=== PATIENT | male | born 1950 | race Caucasian/White ===

== ENCOUNTER → 2016-05-29 | Day surgery (SDC) | payer BC ==
[2016-05-19 13:55] VITALS: Ht 180.3 cm; Wt 81.8 kg
[~2016-05-29] VITALS: Ht 180.3 cm; Wt 81.8 kg
[~2016-05-29] MED LIST: BUPIVACAINE 0.25% 2.5MG/ML PF 10 ML VIAL INFIL ONE; IOPAMIDOL INJ 61% 15 ML VIAL ONE; LIDOCAINE HCL 1% MPF 5 ML VIAL ONE; METHYLPREDNISOLONE ACETATE 80 MG/ML VIAL ONE
--- NOTE | 2016-05-29 14:22 | History & Physical Bridge - [place] ---
H&P Re-Evaluation Bridge Note: I have examined the patient, reviewed the History & Physical and in the interval since the performance of the History & Physical I have noted the following changes of clinical significance: No changes noted
[2016-05-29 14:47] VITALS: BP 126/84; PULSE 60; TEMP 37.2; O2SAT 96
--- NOTE | 2016-05-29 14:48 | Discharge Instructions ---
Discharge Instructions Visit Reason for Visit: Lumbar Spondylosis With Myelopathy Or Radiculopath Discharge Discharge Diagnosis / Problem: low back pain Discharge Goals Goal(s): Decrease discomfort, Improve function Activity Recommendations Activity Limitations: resume your previous activity Anesthesia . Post Anesthesia Instructions: If you have had General Anesthesia or IV Sedation: * Do not drive today. * Resume driving when surgeon permits. * Do not make important decisions or sign legal documents today. * Call surgeon for: 1. Temperature elevations greater than 101 degrees F. 2. Uncontrollable pain. 3. Excessive bleeding. 4. Persistent nausea and vomiting. 5. Medication intolerance (nausea, vomiting or rash). * For nausea and vomiting use only clear liquids such as: tea, soda, bouillon until nausea subsides, then gradually increase diet as tolerated. * If you have any concerns or questions, call your surgeon's office. If physician is unavailable and it is an emergency, call 911 or go to the nearest emergency room. . Diet Recommendations Recommended Home Diet: resume previous diet Pending Studies Studies pending at discharge: no Medical Emergencies . Who to Call and When: Medical Emergencies: If at any time you feel your situation is an emergency, please call 911 immediately. . Non-Emergent Contact Non-Emergency issues call your: Specialist . . "Provider Documentation" section prepared by Chirag Bourne.
--- NOTE | 2016-05-29 16:30 | OPERATIVE REPORT ---
DATE OF OPERATION: 05/29/2016 PREOPERATIVE DIAGNOSES: Chronic low back pain, bilateral L5-S1 facet arthropathy. POSTOPERATIVE DIAGNOSES: Same. PROCEDURE: Bilateral L5-S1 facet joint injections under fluoroscopic guidance. INDICATIONS: The patient is a 66-year-old white male who is having difficulty with axial back pain that is worse with standing, twisting, extending. He denies any significant radiating component of the pain into the legs and he presents today with known facet arthropathy and symptoms that are consistent with this for injections to the facet joints to alleviate or diminish the axial back pain that he is having. PHYSICAL EXAMINATION: Pleasant male seated comfortably. He is point tender to palpation of his L5-S1 facet joints bilaterally, worse with extension and rotation. He has no focal weakness of the lower extremity and sensation is intact. Negative seated straight leg raises. CONSENT: Verbal and written consent was obtained from the patient. Risks and benefits were reviewed. Risks include but are not limited to abscess and allergic reaction. The patient wishes to proceed. DESCRIPTION OF PROCEDURE: The patient was taken back to the special procedures room of the [facility] where he was maintained in a prone position. Backside was cleansed with Betadine x3 and a dry sterile dressing was applied. Fluoroscope was used to identify the L5-S1 facet on the right which was difficult to see because of the underlying mesh. Overlying skin was anesthetized with 3 mL of lidocaine 1% with a 25 gauge 1.5-inch needle and a 25 gauge 3-1/2-inch needle was then placed into the L5-S1 facet joint. Isovue 300 contrast less than a 0.25 mL was injected and which demonstrated intra-articular placement of the needle. He then underwent injection after negative aspiration of 40 mg of Depo-Medrol 0.5 mL and also 0.5 mL of bupivacaine 0.25%. Injection was well tolerated. The right facet joint L5-S1 was then visualized with a 25 degree oblique view. Overlying skin was anesthetized with 3 mL of lidocaine 1% with a 25 gauge 1.5-inch needle. A 25 gauge 3.5 inch spinal needle was then placed into the joint which was well visualized. Isovue 300 contrast 0.25 mL or less was injected and which showed intra-articular placement. He then underwent injection after negative aspiration of 40 mg of Depo-Medrol and 1.5 mL of bupivacaine 0.25%. Injection was well tolerated. DISPOSITION: The patient was then taken out into the discharge recovery area and will be taken home once discharge criteria have been met. Follow up in the [facility] office in 2-4 weeks. I attest to the content of the Intraoperative Record and any orders documented therein. Any exceptio ns are noted below.
== END | disposition home or self-care (01) ==
LOC: X.SURG 13:51
PROVIDERS: ATTEND Physical Medicine & Rehabilitation
DX: M47.817 Spondylosis without myelopathy or radiculopathy, lumbosacral region (principal); G89.29 Other chronic pain

== ENCOUNTER → 2016-06-27 | Outpatient (CLI) | payer BC ==
--- NOTE | 2016-06-27 15:26 | DIAGNOSTIC IMAGING REPORT ---
RIGHT SHOULDER MIN 2 VIEWS CLINICAL HISTORY: Right shoulder pain COMPARISON: None. DISCUSSION: No fractures or dislocations are visualized. There is a sliver-like periarticular/peritendinous calcification. IMPRESSION: 1. No fractures or dislocations 2. Sliver-like periarticular/peritendinous calcification near the greater tuberosity. This may indicate calcific tendinitis. Electronically signed by: Ford Langston M.D. 06/27/2016 3:25 PM Dictated Date/Time: 06/27/2016 3:24 PM
== END | disposition home or self-care (01) ==
LOC: C.RDSM 14:52
PROVIDERS: ATTEND Physical Medicine & Rehabilitation Sports Medicine
DX: R52 Pain, unspecified (principal); M89.9 Disorder of bone, unspecified

== ENCOUNTER → 2016-07-11 | Outpatient (CLI) | payer BC | END | disposition home or self-care (01) | LOC: C.LAB 10:54 | PROVIDERS: ATTEND Urology | DX: R97.20 Elevated prostate specific antigen [PSA] (principal) ==

== ENCOUNTER → 2016-08-12 | Outpatient (CLI) | payer BC | END | disposition home or self-care (01) | LOC: C.LAB 10:49 | PROVIDERS: ATTEND Urology | DX: R97.20 Elevated prostate specific antigen [PSA] (principal) ==

== ENCOUNTER → 2016-11-04 | Outpatient (CLI) | payer BC ==
[2016-11-04 10:35] LABS: % FREE PSA 21.7 %; FREE PSA 1.25 ng/ml; PROSTATE SPECIFIC ANTIGEN 5.77 ng/ml (0.000-4.000)
== END | disposition home or self-care (01) ==
LOC: C.LAB 08:25
PROVIDERS: ATTEND Urology
DX: R97.20 Elevated prostate specific antigen [PSA] (principal)

== ENCOUNTER → 2017-04-06 | Outpatient (CLI) | payer BC | END | disposition home or self-care (01) | LOC: C.RDSM 11:29 | PROVIDERS: ATTEND Physical Medicine & Rehabilitation Sports Medicine | DX: M17.0 Bilateral primary osteoarthritis of knee (principal) ==

== ENCOUNTER → 2017-05-13 | Outpatient (CLI) | payer BC | END | disposition home or self-care (01) | LOC: C.LABBC 10:19 | PROVIDERS: ATTEND Urology | DX: R97.20 Elevated prostate specific antigen [PSA] (principal); N40.0 Benign prostatic hyperplasia without lower urinary tract symptoms ==

== ENCOUNTER → 2017-07-03 | Outpatient (CLI) | payer BC ==
[2017-07-03 14:23] LABS: BLOOD UREA NITROGEN 24 mg/dl (7-18); CREATININE 0.88 mg/dl (0.60-1.40)
== END | disposition home or self-care (01) ==
LOC: C.LABBC 10:49
PROVIDERS: ATTEND Urology
DX: R97.20 Elevated prostate specific antigen [PSA] (principal)

== ENCOUNTER → 2017-07-09 | Outpatient (CLI) | payer BC ==
[~2017-07-09] MED LIST changes: -BUPIVACAINE 0.25% 2.5MG/ML PF 10 ML VIAL INFIL ONE; +GADAVIST IV PRN; -IOPAMIDOL INJ 61% 15 ML VIAL ONE; -LIDOCAINE HCL 1% MPF 5 ML VIAL ONE; -METHYLPREDNISOLONE ACETATE 80 MG/ML VIAL ONE
--- NOTE | 2017-07-10 08:21 | DIAGNOSTIC IMAGING REPORT ---
PROSTATE MRI COMBO CLINICAL HISTORY: Prostatomegaly. Elevated serum PSA. COMPARISON STUDY: Pelvic CT dated 07/22/2013. TECHNIQUE: Multisequence, multiplanar MR imaging of the prostate was performed before and after the administration of intravenous contrast. Additional postprocessing was performed on a separate [employer] workstation by the radiologist for 3-D volumetric segmentation of the prostate and contouring of region(s) of interest (MARY) for targeting. IV contrast: 8 cc of Gadavist. The examination is degraded by susceptibility artifact from orthopedic hardware in the right hip. FINDINGS: Prostate: The prostate measures 5.8 cm in transverse outer. There is median lobe hypertrophy. (Dyna[employer] prostate boundary segmentation volume 114 mL). Severe changes of benign prostatic hyperplasia. Precontrast T1 weighted imaging demonstrates no evidence of intrinsic T1 hyperintensity to suggest hemorrhage. Seminal vesicles normal. Bladder: The bladder wall is thickened and trabeculated indicating chronic outlet obstruction. Bowel: There is moderate diverticulosis of the partially visualized sigmoid colon. Visualized bowel loops are normal in caliber. Peritoneum: No free fluid in the pelvis. Lymph nodes: No lymphadenopathy in the visualized portion of the pelvis. Vasculature: Iliac vessels patent. Abdominal wall: Normal. Osseous structures: Normal bone marrow signal intensity. IMPRESSION: 1. No concerning lesion is identified by MRI. 2. Benign prostatic hyperplasia. 3. Sigmoid diverticulosis without evidence of acute diverticulitis. Electronically signed by: Haim Delaney M.D. 07/10/2017 8:20 AM Dictated Date/Time: 07/09/2017 3:17 PM
== END | disposition home or self-care (01) ==
LOC: C.MRIBC 13:28
PROVIDERS: ATTEND Urology
DX: R97.20 Elevated prostate specific antigen [PSA] (principal); N40.0 Benign prostatic hyperplasia without lower urinary tract symptoms; K57.30 Diverticulosis of large intestine without perforation or abscess without bleeding

== ENCOUNTER 2020-03-14 05:10 | Observation (INO) ==
--- NOTE | 2020-01-13 08:58 | PAT Medication Instructions ---
Medication Instructions Date of Service January 13, 2020 Home Medications Medication Instructions Recorded mirabegron 50 mg tablet,extended 50 mg PO DAILY #90 tab 09/26/19 release 24 hr mirabegron 50 mg tablet,extended release 24 hr 50 mg PO DAILY aspirin [Aspir-81] 81 mg PO QAM DO NOT take the morning of surgery mirabegron 50 mg tablet,extended release 24 hr 50 mg PO DAILY Take morning of surgery With a small sip of water, OTHERWISE NOTHING TO EAT OR DRINK AFTER MIDNIGHT: aspirin [Aspir-81] 81 mg PO QAM Other Notes If you have any questions please call us at [phone] or [phone] or [phone] or [phone]
--- NOTE | 2020-02-17 10:21 | PAT Medication Instructions ---
Medication Instructions Date of Service February 17, 2020 Home Medications aspirin [Aspir-81] 81 mg PO QAM Take morning of surgery With a small sip of water, OTHERWISE NOTHING TO EAT OR DRINK AFTER MIDNIGHT: aspirin [Aspir-81] 81 mg PO QAM Other Notes If you have any questions please call us at [phone] or [phone] or [phone] or [phone]
--- NOTE | 2020-02-20 12:27 | Anesthesiology Consultation ---
Date of Service February 20, 2020 Assessment & Plan (1) Encounter for pre-operative examination: - Per assessment on 02/19: Travel screen negative. No known COVID-19 positive contacts or current COVID-19 related symptoms. Surgeon arranging preop COVID testing. Awaiting results. - S/P TURP: 01/26/20: LMA#5 at [facility] - ASA instructions: per surgeon/prescriber Chart Review Chart Review: Acceptable Risk for Surgery (pending surgeon-ordered PCP clearance) and Patient seen in Pre Admission Testing Teaching & Discussion Pre-Anesthesia Teaching/Discussion Notes: Instructed NPO after midnight before surgery,except medications with 15 cc of water. Medication instructions provided according to the PAT guidelines. History Surgery Operation Date: 03/14/20 07:00 Proposed Procedures p Right Total Knee Arthroplasty - Gerardo Mandujano MD Height/Weight Height: 5 ft 11 in Weight: 84.9 kg Allergies Allergy/AdvReac Type Severity Reaction Status Date / Time No Known Allergies Allergy Verified 02/14/20 11:18 Medications Home Medications Medication Instructions Recorded Confirmed Last Taken aspirin [Aspir-81] 81 mg PO QAM 01/13/20 02/20/20 1 Week Ago ~01/19/20 Past Medical History Medical History BPH (benign prostatic hyperplasia) Iliac artery aneurysm (08/12/13) hx s/p endovascular repair (2013), follows with Dr Alfonso Osteoarthritis Exercise / Class Metabolic Activity II 4-5 Yardwork/Stairs/Walk up hill Past Family History Family History Other No significant family history Past Surgical History Surgical History History of arthroscopy R/L knee History of cataract surgery R/L History of colonoscopy History of cystoscopy History of open reduction and internal fixation (ORIF) procedure RIGHT HIP History of tooth extraction History of total knee replacement LEFT Hx of hand surgery R/L TENDON REPAIR Hx of transurethral resection of prostate TURP: 03/09/18: LMA#4 at [facility] Hx of vascular surgery RIGHT ILIAC ANEURYSM REPAIR (~2013) Hx of vasectomy S/P TURP 01/26/20 [facility] Past Anesthesia History No Hx of Anesthesia Complications and No Family Hx of Anesthesia Complications History of PONV No Hx of PONV and No Hx of Motion Sickness Social History Smoking Status: Former smoker tobacco type: cigarettes Do You Dip or Chew Tobacco: No Smoking End Date: Quit ~1989 Hx Alcohol Use: Yes Alcohol type: beer alcohol intake frequency: a few times a week Hx Substance Use: No substance use type: does not use Review of Systems Patient denies chest pain, shortness of breath, dyspnea on exertion, fever, chills, cough, wheezing, palpitations. Physical Exam Vital Signs VITALS BP 130/81 P 61 TEMP 98.0 SP02 97%RA RESP 16 PHYSICAL Full neck and c-spine range of motion. Full TMJ range of motion. TMD 3 finger breaths Mallampati Score 3 Dentition: intact, crowns on molars Lungs: clear throughout to auscultation Cardiac: regular rate and rhythm, no murmurs noted Spine: normal Carotid arteries: negative bruit Extremities: no edema Testing Laboratory Results 02/20/20 12:50 02/20/20 12:50 PT 10.6 Seconds (9.0-12.0) 02/20/20 12:50 INR 1.0 (0.9-1.1) 02/20/20 12:50 APTT 26.0 Seconds (21.0-31.0) 02/20/20 12:50 Urine Color Yellow 02/20/20 12:50 Urine Appearance Clear (Clear) 02/20/20 12:50 Urine pH 7.5 (4.5-7.5) 02/20/20 12:50 Ur Specific Jordan 1.017 (1.000-1.030) 02/20/20 12:50 Urine Protein Negative (Negative) 02/20/20 12:50 Urine Glucose (UA) Negative (Negative) 02/20/20 12:50 Urine Ketones Negative (Negative) 02/20/20 12:50 Urine Nitrite Negative (Negative) 02/20/20 12:50 Ur Leukocyte Esterase 2+ (Negative) H 02/20/20 12:50 Urine WBC (Auto) >30 /hpf (0-5) H 02/20/20 12:50 Urine RBC (Auto) >30 /hpf (0-4) H 02/20/20 12:50 U Hyaline Cast (Auto) 1-5 /lpf (0-5) 02/20/20 12:50 U Epithel Cells (Auto) 20-30 /lpf (0-5) H 02/20/20 12:50 Urine Bacteria (Auto) Negative (Negative) 02/20/20 12:50 Blood Type AB Positive 02/20/20 12:50 Antibody Screen NEGATIVE 02/20/20 12:50 Electrocardiogram Date: 05/17/19 Findings: + NSR @ (62) Chest X-Ray Date: 01/16/20 FINDINGS: Cardiomediastinal and hilar silhouettes are within normal limits. Calcified plaque of the thoracic aortic arch. There is no pneumothorax, pleural effusion, airspace consolidation or overt pulmonary edema. Mild hyperinflation with diaphragmatic flattening. Degenerative changes of the shoulders and spine. IMPRESSION: No acute process.
[2020-02-20 14:15] LABS: Basophils # (auto) 0.06 K/uL (0-0.2); Basophils % (auto) 0.9 %; Eosinophils # (auto) 1.15 K/uL (0-0.5); Eosinophils % (auto) 17.5 %; Hematocrit (blood only) 41.4 % (42-52); Hemoglobin 13.6 g/dL (14.0-18.0); Immature Granulocytes # (auto) 0.01 K/uL (0.00-0.02); Immature Granulocytes % (auto) 0.2 %; Mean Corpuscular Hemoglobin 30.4 pg (25-34); Mean Corpuscular Hgb Conc 32.9 g/dL (32-36); Mean Corpuscular Volume 92.4 fL (80-100); Mean Platelet Volume 10.6 fL (7.4-10.4); Monocytes % (auto) 9.1 %; Neutrophils # (auto) 2.46 K/uL (1.4-6.5); Neutrophils % (auto) 37.3 %; Platelet Count 277 K/uL (130-400); RDW Coefficient of Variation 13.2 % (11.5-14.5); RDW Standard Deviation 44.8 fL (36.4-46.3); Red Blood Count 4.48 M/uL (4.7-6.1); White Blood Count 6.58 K/uL (4.8-10.8)
[2020-02-20 14:24] LABS: Partial Thromboplastin Ratio 0.9; Prothrombin Time 10.6 Seconds (9.0-12.0)
[2020-02-20 14:30] LABS: BUN Creatinine Ratio 25.7 (10-20); Calcium 9.2 mg/dl (8.5-10.1); Creatinine Clr Calc Pharmacy 85.9 ml/min; Est GFR (African American) 102.1; Est GFR (Non-African American) 88.1; Potassium 4.5 mmol/L (3.5-5.1)
[2020-02-20 14:41] LABS: Appearance Urine Clear (Clear); Bacteria Urine Automated Negative (Negative); Bilirubin Urine Negative (Negative); Blood Urine 3+ (Negative); Color Urine Yellow; Epithelial Cell Urine Auto 20-30 /lpf (0-5); Glucose Urine UA Negative (Negative); Ketones Urine Negative (Negative); Leukocyte Esterase Urine 2+ (Negative); Nitrite Urine Negative (Negative); Protein Urine Negative (Negative); RBC Urine Automated >30 /hpf (0-4); Specific Gravity Urine 1.017 (1.000-1.030); Urobilinogen Urine Negative (Negative); WBC Urine Automated >30 /hpf (0-5); pH Urine 7.5 (4.5-7.5)
--- NOTE | 2020-02-22 11:32 | History & Physical Report ---
Date of Service February 22, 2020 Assessment & Plan (1) Right knee DJD: Postoperative prescriptions for Percocet and Coumadin will be provided at discharge from the hospital. Anticipate discharge to home with home health services. Preoperative lab work, EKG, and chest x-ray have been ordered. Medical clearance has been requested from his PCP, Dr. Cruz. The patient already has crutches and a walker. He is aware of the COVID-19 risks associated with surgery. He is currently asymptomatic of any COVID-19 symptoms. He will obtain nasal swab testing for COVID prior to surgery. PDMP was checked and there are no concerning findings. Call with any other concerns. History of Present Illness Chief Complaint: Right knee pain Primary Care Provider: Filipe Almaguer DO This 69-year-old white male presents today for intermittent right knee pain for the last 14 months. He states it does come and go. He is scheduled to undergo a right knee total knee arthroplasty on 03/14/2020. The pain is more severe with activity. He has tried Celebrex as well as viscosupplementation, activity modification, and oral pain medication without lasting improvement. He notes that the pain is sometimes severe and other times nonexistent. Yesterday, he was able to bike for 40 minutes and walk several miles without discomfort. He states he never knows when it may become exacerbated. Pain is always medial. He denies any recent effusions. No catching or locking. No buckling. No numbness or tingling. There is occasional night pain. He has a history of previous left total knee arthroplasty performed 03/31/2013 and has done very well with that. He elects to proceed with the same on the right. Pain is affecting his ADLs. Allergies Allergy/AdvReac Type Severity Reaction Status Date / Time No Known Allergies Allergy Verified 02/14/20 11:18 Home Medications Home Medications Medication Instructions Recorded Confirmed Type aspirin [Aspir-81] 81 mg PO QAM 01/13/20 02/20/20 History Past Med/Surg History Medical History (Updated 02/22/20 @ 12:39 by Levi Barclay PA-C) BPH (benign prostatic hyperplasia) Iliac artery aneurysm (08/12/13) hx s/p endovascular repair (2013), follows with Dr Alfonso Osteoarthritis Surgical History History of arthroscopy R/L knee History of cataract surgery R/L History of colonoscopy History of cystoscopy History of open reduction and internal fixation (ORIF) procedure RIGHT HIP History of tooth extraction History of total knee replacement LEFT Hx of hand surgery R/L TENDON REPAIR Hx of transurethral resection of prostate TURP: 03/09/18: LMA#4 at [facility] Hx of vascular surgery RIGHT ILIAC ANEURYSM REPAIR (~2013) Hx of vasectomy S/P TURP 01/26/20 [facility] Family History Other No significant family history Social History (Updated 02/22/20 @ 11:30 by Levi Barclay PA-C) Smoking Status: Former smoker Smoking End Date: Quit ~1989; Second Hand Exposure: No; Do You Dip or Chew Tobacco: No; Tobacco Cessation Education Requested by Patient: No Hx Alcohol Use: Yes Alcohol type: beer Hx Substance Use: No Preferred Language: Kinyarwanda Communication Ability: Effective Visual Impairment: No Limitations Tax Agent Required: No Beliefs That Will Affect Care: None marital status: Current Living Situation: Spouse current occupational status: employed Other Information That Helps Us Care for You: No Feels Safe at Home: Yes Safety Concerns: Feels Safe At This Time Assistive Devices: Glasses Review of Systems Review of Systems: All systems reviewed & are unremarkable except as noted in HPI & below A total of 10 systems were reviewed. Physical Exam Physical Exam: Vitals: Height 176.5 cm, weight 82.2 kilograms, BMI 26.4, temperature 36.3 oral, BP 128/90, pulse 64, O2 sat 98% on room air. General: Well-developed, well-nourished, elderly white male in no acute distress. Sitting in a chair. Alert and oriented. Conversive. Skin: Warm and dry with good turgor. No rashes or lesions. No ecchymosis or erythema. No intraarticular effusion. Scar present on his left knee. HEENT: Normocephalic, atraumatic. Eyes: PERRLA, EOMI. Nares and oropharynx exams deferred due to COVID precautions. Heart: RRR, no MGR. Lungs: Clear to auscultation bilaterally, no crackles, rhonchi or wheezing, good air movement. Abdomen: Bowel sounds present x4, soft, nontender. No organomegaly. No masses. Musculoskeletal: Right knee evaluation reveals no intraarticular effusion. He has full terminal extension. Flexion to greater than 120 degrees. Strength is 5/5 with good quad tone. He has focal discomfort with palpation over the medial joint line. No lateral joint line discomfort. Stable collateral ligaments. No defect in the patellar tendon or quadriceps tendon. No current pain with palpation over the patella. Ambulates with a normal gait today. The patient does have visible flexion contractures in both of his little fingers. Neurologic: Gross sensation is intact across both lower extremities by soft touch. Peripheral pulses are 2+. Results & Data Results & Data ([facility]) Diagnostic Findings Radiographic images obtained today are positive for end-stage DJD of the right knee. These were reviewed by me and read by radiology. He has significant medial joint space collapse with [id number] presentation. Periarticular osteophytes, subchondral sclerosis, and joint space narrowing are all present.
[2020-03-14] MEDS ORDERED: TRANEXAMIC ACID 1,000 MG **IV Pre-op IV SCH (06:00)
[2020-03-14] MEDS ORDERED: LR 60ML/HR IV SCH (06:00)
[2020-03-14] MEDS ORDERED: ROPIVACAINE 0.5% HCL/PF 150 MG, BUPIVACAINE 0.5% MPF 30 ML, EPINEPHrine 0.15 MG, Ketoro... INFIL SCH (06:00)
[2020-03-14] MEDS ORDERED: ceFAZolin 2000MG 2,000 MG/15 ML SYR IV SCH (06:00)
[2020-03-14] MEDS ORDERED: LR 500ML BOLUS, THEN 15ML/HR IV SCH (06:00)
--- NOTE | 2020-03-14 06:19 | History & Physical Bridge Note ---
Date of Service March 14, 2020 History & Physical Bridge Note I have examined the patient, reviewed the History & Physical and in the interval since the performance of the History & Physical I have noted the following changes of clinical significance: consent obtined/site verified/covid screen negative.no changes noted
--- NOTE | 2020-03-14 06:21 | History & Physical Bridge Note ---
Date of Service March 14, 2020 History & Physical Bridge Note I have examined the patient, reviewed the History & Physical and in the interval since the performance of the History & Physical I have noted the following changes of clinical significance:consent obtained/site verifies/covid screen negative. no changes noted
[2020-03-14] MEDS ORDERED: ROPIVACAINE 0.5% 5 MG/ML 30 ML VIAL ONE (06:28)
[2020-03-14] MEDS ORDERED: BUPIVACAINE 0.5 % 5 MG/1 ML PF 10ML VIAL ONE (06:28)
[2020-03-14] MEDS ORDERED: ePHEDrine sulfate 50 MG/ML SYR ONE (06:37)
[2020-03-14] MEDS ORDERED: PROPOFOL IV EMULSION 10 MG/ML 20 ML VIAL IV ONE ×2 (06:37→07:25)
[2020-03-14] MEDS ORDERED: PHENYLEPHRINE 100MCG/ML 5ML SYR ONE (06:37)
[2020-03-14] MEDS ORDERED: MIDAZOLAM HCL 1 MG/ML 2ML VIAL ONE (06:37)
[2020-03-14] MEDS ORDERED: LIDOCAINE HCL 2% 2 ML VIAL/AMP(20MG/ML) INFIL ONE (06:37)
[2020-03-14] MEDS ORDERED: fentaNYL citrate 100 MCG/2 ML VIAL ONE (06:37)
[2020-03-14] MEDS ORDERED: ONDANSETRON INJ 2 MG/ML 2 ML VIAL IV PRN ×2 (06:50→10:10)
[2020-03-14] MEDS ORDERED: METOCLOPRAMIDE HCL INJ 5 MG/ML 2 ML VIAL IV PRN ×2 (06:50→10:10)
[2020-03-14] MEDS ORDERED: fentaNYL citrate 100 MCG/2 ML VIAL IV PRN (06:50)
[2020-03-14] MEDS ORDERED: HYDROmorphone INJ 2 MG/ML SYR/VIAL IV PRN (06:50)
[2020-03-14] MEDS ORDERED: PROMETHAZINE HCL 12.5 MG in SODIUM CHLORIDE 0.9% 50 ML IV PRN (06:50)
[2020-03-14] MEDS ORDERED: ePHEDrine sulfate 50 MG/ML AMP IV PRN (06:50)
[2020-03-14] MEDS ORDERED: ATROPINE SULFATE 0.1 MG/ML 10ML SYR IV PRN (06:50)
[2020-03-14] MEDS ORDERED: ORTHO JOINT ANESTHETIC ONE (06:51)
--- NOTE | 2020-03-14 08:22 | Post Operative Brief Note ---
Immediate Post Op Note v1 Date of Surgery March 14, 2020 Pre & Post Diagnosis Operation Date: 03/14/20 07:00 Pre-Op Diagnosis: Right Knee Degenerative Joint Disease Post-Op Diagnosis: Right Knee Degenerative Joint Disease I identified the patient and participated in the time-out.: Yes Procedure Operation Date: 03/14/20 07:00 Actual Procedures p Right Total Knee Arthroplasty(Right) - Gerardo Mandujano MD Surgeon Gerardo [facility]ujano [facility] Est[facility] Blood Loss 25 Findings Consistent with Post-Op Diagnosis
--- NOTE | 2020-03-14 08:33 | Operative Report ---
Post Operative Report Pre & Post Diagnosis Operation Date: 03/14/20 07:00 Pre-Op Diagnosis: Right Knee Degenerative Joint Disease Post-Op Diagnosis: Right Knee Degenerative Joint Disease I identified the patient and participated in the time-out.: Yes Procedure Operation Date: 03/14/20 07:00 Actual Procedures Right Total Knee Arthroplasty(Right) - Gerardo Mandujano MD Surgeon NOY Mandujano MD Urgent Care Physician Assistant rafi [facility] Estimated Blood Loss 25 Findings Consistent with Post-Op Diagnosis Specimens see operative report Drains none Complications none Disposition Accompanied Patient To Recovery: Yes Disposition: Recovery Room Indications This 69-year-old white male presented to the office with complaints of persisting right knee pain. He had tried conservative care measures without improvement. He elected to proceed with surgical intervention after being educated about potential risks and outcomes. Preoperative imaging was obtained. Description of Procedure Patient was administered a spinal anesthetic and then taken to the operating room where he was given sedation. He was prepped and draped in the usual sterile fashion. Please see Dr. Mandujano's operative report for specifics of the procedure. I was present for the entire case from initial patient positioning through final wound closure. Assistance was provided in patient positioning, tissue retraction, hemostasis, trial implant placement, final implant placement, and final wound closure. Patient was taken to the recovery room in satisfactory condition. I attest to the content of the Intraoperative Record and any orders documented therein. Any exceptions are noted below.
--- NOTE | 2020-03-14 08:42 | Operative Report (OR) ---
DATE OF OPERATION: 03/14/2020 SURGEON: Gerardo Mandujano MD. FIELD SERVICE TECHNICIAN POULTRY: Levi Barclay PA-C. No resident or fellow available. PREOPERATIVE DIAGNOSIS: Osteoarthritis with varus deformity, right knee. POSTOPERATIVE DIAGNOSIS: Osteoarthritis with varus deformity, right knee. OPERATION PERFORMED: Cemented right total knee replacement. PERIOPERATIVE SITUATION: Medically cleared male with intractable right knee pain, has failed conservative management including viscosupplementation series for years. X-rays reveal end-stage medial and patellofemoral compartment disease. Wants to proceed with surgical treatment. SUMMARY OF IMPLANTS: Size 4 narrow right femur, posterior cruciate substituting mobile bearing tray tibia, size 4, 41 patella, 4 x 10 posterior cruciate substituting insert rotating platform. Two bags of Palacos G cement. ESTIMATED BLOOD LOSS: 25 mL CRYSTALLOID: Per anesthesia. PATHOLOGY: Pending on resections. DESCRIPTION OF PROCEDURE: After the patient appropriately identified, site verified, consent verified. Antibiotics confirmed as being given. Right lower extremity was prepped and draped in usual routine fashion. Tourniquet inflated to 300 mmHg after exsanguination of limb with a rubber Esmarch bandage for a total of 46 minutes. Midline exposure was utilized. Parapatellar arthrotomy performed. He had a significant bursa, which was resected. Parapatellar arthrotomy was performed. Synovectomy completed. Medial release performed to get him into a neutral alignment. Once this was performed, patella everted. Cruciates resected. Distal femur entered, resected 12 mm, proximal tibia resected 4 mm, the extension gap was excellent. Femur was sized to a solid 4, was measured 4 cut 4, no notching. The box cut was then made after the flexion gap was checked and it was excellent. Box cut was made and the size 4 narrow fit well. The tibia was then broached and reamed to size 4 and a size 10 spacer fit well. The patella tracked well. The knee was stable in full extension, full flexion and mid range flexion. The patella was resected leaving 17 mm. It was size 41 button fit well. It tracked well. The Orthomix was then injected all around the knee including posteriorly. The knee was then irrigated after all trial implants were removed with Betadine Pulsavac and then the permanent cemented in position, tibia, femur and patella in that order. After 12 minutes, the tourniquet deflated. Minor bleeding points controlled with electrocautery. After 14 minutes, the knee was flexed, the trial spacer removed. There were no issues with cement, everything was irrigated one final time and then the permanent liner seated. The knee reduced and closed at 40 degrees of flexion using #2 Vicryl, 2-0 Vicryl and stainless steel clips. Appropriate dressing applied. The patient transferred to recovery room in satisfactory condition having tolerated the procedure well. DVT prophylaxis per protocol. Pathology pending on bone. I attest to the content of the Intraoperative Record and any orders documented therein. Any exception s are noted below.
--- NOTE | 2020-03-14 08:55 | XRay Report ---
XR knee RT 1 or 2V routine CLINICAL HISTORY: S/P R TKA COMPARISON: Right knee radiographs February 20, 2020. FINDINGS: Alignment of the total right knee arthroplasty is anatomic. No fracture or unexpected radi opaque foreign body. There are skin maddie. IMPRESSION: Expected findings following total right knee arthroplasty. ACT 112: Negative or not required by law. Electronically signed by: Álvaro Savage M.D. 03/14/2020 8:54 AM
[2020-03-14] MEDS ORDERED: VANCOMYCIN HCL 1,250 MG in SODIUM CHLORIDE 0.9% 250 ML IV SCH (09:00)
--- NOTE | 2020-03-14 09:50 | Anesthesiology Progress Note ---
Date of Service March 14, 2020 Anesthesia Post Procedure Vital Signs Vital Signs: Temp Pulse Pulse Resp BP Pulse Ox 03/14/20 09:40 36.6 C 60 14 114/71 97 03/14/20 09:30 61 14 116/76 95 03/14/20 09:20 62 21 109/69 95 03/14/20 09:10 64 13 106/65 95 03/14/20 09:00 59 L 13 105/73 98 03/14/20 08:50 67 15 108/60 94 03/14/20 08:40 69 12 103/66 97 03/14/20 08:32 36.4 C L 70 15 102/56 L 96 03/14/20 06:22 66 20 164/99 H 95 03/14/20 05:33 36.6 C 70 18 159/99 H 95 Transfer of Care Handoff Completed per policy Notes Mental Status: alert / awake / arousable and participated in evaluation Patient Amnestic to Procedure: Yes Nausea / Vomiting: adequately controlled Pain: adequately controlled Airway Patency, RR, SpO2: stable & adequate BP & HR: stable & adequate Hydration State: stable & adequate Neuraxial Anesthesia: was administered and sensory block is resolving Anesthetic Complications: no major complications apparent
[2020-03-14] MEDS ORDERED: diphenhydrAMINE 50 MG/ML VIAL IV PRN (10:10)
[2020-03-14] MEDS ORDERED: NALOXONE HCL 0.4 MG/1 ML VIAL/CARP IV PRN (10:10)
[2020-03-14] MEDS ORDERED: oxyCODONE HCL IR 5 MG TAB (IMMEDIATE RELEASE) PO PRN (10:10)
[2020-03-14] MEDS ORDERED: MAGNESIUM HYDROXIDE SUSP 30 ML UDC PO PRN (10:10)
[2020-03-14] MEDS ORDERED: bisacodyL 10 MG SUPP PR PRN (10:10)
[2020-03-14] MEDS ORDERED: TAMSULOSIN HCL 0.4 MG CAP PO PRN (10:10)
[2020-03-14] MEDS ORDERED: ALUMINUM/MAGNESIUM SUSP 30 ML UDC PO PRN (10:10)
[2020-03-14] MEDS ORDERED: SODIUM CHLORIDE 0.9% 1000ML 1,000 ML IV SCH (10:10)
[2020-03-14] MEDS ORDERED: HYDROmorphone INJ 0.5 MG/0.5 ML SYR IV PRN (10:10)
--- NOTE | 2020-03-14 11:08 | Progress Notes ---
DATE: 03/14/2020 SUBJECTIVE: Postop check status post right total knee replacement. The patient is doing well, is conversant on his cell phone. He states he is doing fine. I contacted his and confirmed her that everything went well with his right knee replacement. He denies chest pain, shortness of breath, fever, chills, nausea, vomiting or headache. OBJECTIVE: Vital signs are stable. He is afebrile. Neurovascular check, he is wearing off from the spinal. Wound dressing is clean, dry and intact. X-rays postop look excellent. ASSESSMENT: Doing well. Continue with postoperative care pathway. Discharge if he does well overnight.
--- NOTE | 2020-03-14 11:39 | Discharge Summary (DS) ---
CHIEF COMPLAINT: Right knee pain. HISTORY OF PRESENT ILLNESS: Underwent elective right total knee replacement. Hospital course has been uneventful. He continues to do well. Postop x-rays look excellent. PAST MEDICAL AND PAST SURGICAL HISTORY: Reveals BPH, iliac artery aneurysm, status post endovascular repair, osteoarthritis, history of multiple knee surgeries, left knee replacement, ORIF of right hip, multiple teeth extractions, hand surgery, Dupuytren's disease -- extensive, history of vasectomy and TURP. SOCIAL HISTORY: Reveals he is . Does not smoke presently, quit in 1989, does not chew tobacco. Social drinking only. REVIEW OF SYSTEMS: Reveals no chest pain, shortness of breath, fever, chills, nausea or vomiting. Postop x-rays look excellent. ASSESSMENT: Doing well status post right total knee replacement. Discharge to home tomorrow if he does well tonight.
[2020-03-14] MEDS: KETOROLAC TROMETHAMINE 15 MG/ML VIAL IV SCH ×3 (11:49→22:14)
[2020-03-14] MEDS: DOCUSATE SODIUM 100 MG CAP PO SCH ×2 (11:49→21:38)
[2020-03-14] MEDS: ASPIRIN 81 MG ECTAB PO SCH (11:49)
[2020-03-14] MEDS: MULTIVITAMIN TAB PO SCH (11:49)
[2020-03-14] MEDS: ORTHO WARFARIN NOMOGRAM SCH (12:11)
[2020-03-14] MEDS: ACETAMINOPHEN 500 MG TAB PO SCH ×2 (13:02→21:37)
[2020-03-14] MEDS: ceFAZolin 2000MG 2,000 MG/15 ML SYR IV SCH ×2 (14:03→22:14)
[2020-03-14] MEDS ORDERED: TRANEXAMIC ACID / 0.7% NACL 1,000 MG/100 ML BAG IV SCH (14:38)
[2020-03-14] MEDS ORDERED: WARFARIN SOD 5 MG TAB PO SCH (16:00)
[2020-03-14] MEDS: ASCORBIC ACID 500 MG TAB PO SCH (16:54)
[2020-03-14] MEDS: FERROUS GLUCONATE 324 MG TAB PO SCH (16:54)
[2020-03-14] MEDS ORDERED: SENNA 8.6 MG TAB PO SCH (21:00)
[2020-03-14 23:04] VITALS: O2SAT 96
[2020-03-15] MEDS: ACETAMINOPHEN 500 MG TAB PO SCH (04:58)
[2020-03-15] MEDS: KETOROLAC TROMETHAMINE 15 MG/ML VIAL IV SCH (04:58)
[2020-03-15 07:28] LABS: Hematocrit (blood only) 33.9 % (42-52); Hemoglobin 11.1 g/dL (14.0-18.0); Mean Corpuscular Hemoglobin 30.1 pg (25-34); Mean Corpuscular Hgb Conc 32.7 g/dL (32-36); Mean Corpuscular Volume 91.9 fL (80-100); Mean Platelet Volume 10.3 fL (7.4-10.4); Platelet Count 219 K/uL (130-400); RDW Coefficient of Variation 13.2 % (11.5-14.5); RDW Standard Deviation 44.3 fL (36.4-46.3); Red Blood Count 3.69 M/uL (4.7-6.1); White Blood Count 9.92 K/uL (4.8-10.8)
[2020-03-15 07:33] LABS: INR 1.1 (0.9-1.1); Prothrombin Time 11.5 Seconds (9.0-12.0)
[2020-03-15 07:49] VITALS: BP 117/69; PULSE 67; TEMP 98.2
[2020-03-15 07:50] LABS: BUN Creatinine Ratio 25.6 (10-20); Calcium 8.3 mg/dl (8.5-10.1); Creatinine Clr Calc Pharmacy 85.9 ml/min; Est GFR (African American) 102.1; Est GFR (Non-African American) 88.1; Potassium 3.8 mmol/L (3.5-5.1)
[2020-03-15] MEDS ORDERED: dexAMETHasone 10 MG in SYRINGE 0 ML IV SCH (08:00)
--- NOTE | 2020-03-15 08:03 | Anesthesiology Progress Note ---
Date of Service March 15, 2020 Anesthesia Post Procedure Vital Signs Vital Signs: Temp Pulse Pulse Resp BP BP Pulse Ox 03/15/20 07:48 36.8 C 67 16 117/69 96 03/15/20 03:10 36.9 C 73 16 119/73 96 03/14/20 23:03 36.9 C 65 16 102/59 L 96 03/14/20 19:14 36.7 C 71 18 121/74 95 03/14/20 15:34 36.6 C 70 17 117/74 97 03/14/20 13:01 36.3 C L 16 137/87 95 03/14/20 11:53 59 L 18 128/83 97 03/14/20 11:11 63 16 121/75 97 03/14/20 10:40 61 16 119/73 96 03/14/20 09:56 36.4 C L 60 16 126/80 98 03/14/20 09:40 36.6 C 60 14 114/71 97 03/14/20 09:30 61 14 116/76 95 03/14/20 09:20 62 21 109/69 95 03/14/20 09:10 64 13 106/65 95 03/14/20 09:00 59 L 13 105/73 98 03/14/20 08:50 67 15 108/60 94 03/14/20 08:40 69 12 103/66 97 03/14/20 08:32 36.4 C L 70 15 102/56 L 96 Notes Mental Status: alert / awake / arousable and participated in evaluation Nausea / Vomiting: adequately controlled Pain: adequately controlled Airway Patency, RR, SpO2: stable & adequate BP & HR: stable & adequate Hydration State: stable & adequate Neuraxial Anesthesia: was administered and sensory block resolved Anesthetic Complications: no major complications apparent
--- NOTE | 2020-03-15 08:10 | Progress Notes ---
DATE: 03/15/2020 SUBJECTIVE: Postop day #1 status post right total knee replacement. The patient is quite comfortable. Denies any chest pain, shortness of breath, fever, chills, nausea, vomiting or headache. He is mobile. Eating, drinking, he is voiding. A.m. labs are pending. OBJECTIVE: Wound dressing clean, dry and intact. Neurovascular check, femoral sciatic nerve is normal. Calves nontender. ASSESSMENT: Doing well. Discharge to home today. Check a.m. labs. Coumadin dose per nomogram.
[2020-03-15] MEDS: ASCORBIC ACID 500 MG TAB PO SCH (08:30)
[2020-03-15] MEDS: FERROUS GLUCONATE 324 MG TAB PO SCH (08:30)
[2020-03-15] MEDS: ASPIRIN 81 MG ECTAB PO SCH (08:31)
[2020-03-15] MEDS: DOCUSATE SODIUM 100 MG CAP PO SCH (08:31)
[2020-03-15] MEDS: MULTIVITAMIN TAB PO SCH (08:31)
[2020-03-15] MEDS: ORTHO WARFARIN NOMOGRAM SCH (09:14)
--- NOTE | 2020-03-15 09:26 | Orthopedic Progress Note ---
Date of Service March 15, 2020 Assessment & Plan (1) S/P total knee arthroplasty: Dressing was changed today by me. This will remain in place until Thursday, at which time it can be changed as needed for soiling. Continue his home exercise program daily. Coumadin today per nomogram. He will take 4 mg daily through the weekend and have his INR checked on Thursday. Follow-up in the office in 2 weeks as scheduled on March 29 for staple removal. Continue with the knee immobilizer until Thursday morning, and then discontinue. He was reminded to use his walker for ambulation Prescriptions for Percocet and Coumadin have been sent to his pharmacy Written discharge instructions have been provided. Admission and Anticipated Discharge Date Admission Date: March 14, 2020 Subjective Patient is seen in his room this morning. He denies any chest pain, shortness of breath, nausea, vomiting, or significant knee pain. He is complaining of some thigh pain from his tourniquet site. He states it is sore, like a bruise. He has already eaten breakfast. He feels ready for discharge to home today. No other complaints. He has been out of bed. Review of Systems Review of Systems: Unchanged from yesterday. Physical Exam Physical Exam: General: Well-developed, well-nourished, elderly white male, in no acute distress. Sitting in his bed. Alert and oriented. Conversive. Skin: Postsurgical dressings are intact. Upon removal, he has no active bleeding. Scant drainage on his dressings. Dana are intact. Wound edges are well approximated. Expected postoperative edema. No ecchymosis at this time. Musculoskeletal: Right knee evaluation reveals intact straight leg raise. Full terminal extension. Flexion was not attempted at this time. Intact motor function to the ankle and toes. Neurologic: Gross sensation is intact across all aspects of the right leg by soft touch. Peripheral pulses are 2+. Results & Data ([facility]) Vital Signs (Past 12 Hours) Vital Signs Temp Pulse Resp BP Pulse Ox 03/15/20 07:48 36.8 C 67 16 117/69 96 03/15/20 03:10 36.9 C 73 16 119/73 96 03/14/20 23:03 36.9 C 65 16 102/59 L 96 Laboratory Results H&H today are 11.1 and 33.9. INR is 1.1. PRP is unremarkable.
[2020-03-15] MEDS ORDERED: WARFARIN SOD 5 MG TAB PO SCH ×2 (11:00→16:00)
== END 2020-03-15 12:18 | disposition home or self-care (01) ==
LOC: ASU 05:10 → 3E 05:10
DX: M21.161 Varus deformity, not elsewhere classified, right knee; Z87.891 Personal history of nicotine dependence; M17.11 Unilateral primary osteoarthritis, right knee; Z79.82 Long term (current) use of aspirin

== ENCOUNTER 2024-09-15 23:15 | Observation (INO) ==
[2024-09-16 00:02] LABS: Basophils # (auto) 0.05 K/uL (0.00-0.20); Basophils % (auto) 0.6 %; Eosinophils # (auto) 0.32 K/uL (0.00-0.50); Eosinophils % (auto) 4.1 %; Hematocrit (blood only) 44.7 % (42.0-52.0); Hemoglobin 15.1 g/dl (14.0-18.0); Immature Granulocytes # (auto) 0.02 K/uL (0.01-0.20); Immature Granulocytes % (auto) 0.3 %; Lymphocytes # (auto) 2.18 K/uL (1.20-3.40); Lymphocytes % (auto) 27.9 %; Mean Corpuscular Hgb Conc 33.8 g/dL (32.0-36.0); Mean Corpuscular Volume 88.7 fL (80.0-100.0); Mean Platelet Volume 10.5 fL (9.4-12.4); Monocytes # (auto) 0.68 K/uL (0.11-0.59); Monocytes % (auto) 8.7 %; Neutrophils # (auto) 4.55 K/uL (1.40-6.50); Neutrophils % (auto) 58.4 %; Platelet Count 229 K/uL (130-400); RDW Coefficient of Variation 13.5 % (11.5-14.5); RDW Standard Deviation 43.8 fL (36.4-46.3); Red Blood Count 5.04 M/uL (4.70-6.10)
[2024-09-16 00:10] LABS: Appearance Urine Cloudy (Clear); Bacteria Urine Automated None Seen (None Seen); Bilirubin Urine Negative (Negative); Blood Urine Negative (Negative); Cast Urine Automated 0-2 /lpf (0-2); Color Urine Yellow; Epithelial Cell Urine Auto 0-2 /hpf (0-2); Glucose Urine UA Negative (Negative); Ketones Urine Trace (Negative); Leukocyte Esterase Urine Negative (Negative); Nitrite Urine Negative (Negative); Protein Urine Negative (Negative); RBC Urine Automated 0-2 /hpf (0-2); Specific Gravity Urine 1.012 (1.000-1.030); Urobilinogen Urine Negative (Negative); WBC Urine Automated 0-5 /hpf (0-5); pH Urine >= 9.0 (4.5-7.5)
[2024-09-16 00:10] LABS: Albumin Globulin Ratio 1.3 (0.9-2); Albumin Level 4.5 gm/dl (3.4-5.0); BUN Creatinine Ratio 20.9 (10-20); Bilirubin,Total 0.8 mg/dl (0.2-1.0); Calcium 10.1 mg/dl (8.6-10.3); Creatinine Clr Calc Pharmacy 75.5 ml/min; Globulin 3.5 gm/dl (2.5-4.0); Potassium 3.8 mmol/L (3.5-5.1)
[2024-09-16 00:16] LABS: Troponin I High Sensitivity 4.9 pg/ml (0-20)
--- NOTE | 2024-09-16 01:17 | XRay Report ---
EXAM: XR chest 1V portable CLINICAL HISTORY: Abdominal pain. TECHNIQUE: An X-ray image of the chest is obtained in AP projection. COMPARISON: 03/06/2023. FINDINGS: Pulmonary Parenchyma: Emphysematous lungs. No evidence of consolidation, collapse, or focal opacities. No pulmonary nodules are identified. No evidence of pleural effusion or pleural thickening. Heart and Mediastinum: Cardiomegaly. Ectatic descending aorta. No mediastinal widening or masses. No hilar or mediastinal lymphadenopathy. Bony Thorax: Bony thorax appears intact without fractures or deformities. Soft Tissues: Soft tissues overlying the chest wall are unremarkable. IMPRESSION: 1. Emphysematous lungs. 2. Cardiomegaly. 3. No consolidation, pneumothorax or pleural effusion. 4. No interval changes. Electronically signed by Ben Myers 09-16-2024 01:16 AM
--- NOTE | 2024-09-16 01:47 | CT Scan Report ---
EXAM: CT abd pelvis IV con only CLINICAL HISTORY: Mid lower abdominal pain, could be diverticulitis. TECHNIQUE: Contrast-enhanced CT of the abdomen and pelvis was performed, with the following protocol: axial images with and reconstructed coronal and sagittal images. Intravenous contrast was administered. One of the following dose reduction techniques was utilized for this exam: Automated exposure control, adjustment of the mA and/or kV according to patient size, and use of iterative reconstruction. 93 ml Optiray 320 was given a an IV contrast. COMPARISON: None. FINDINGS: Abdomen: Liver: Normal in size, shape, and density. Numerous tiny subcentimeter-sized cystic lesions are identified scattered in bilateral hepatic lobes, which may represent simple cysts versus multiple biliary hamartomas. No focal solid lesions or masses were identified. Hepatic vasculature and biliary ducts are unremarkable. Gallbladder and Biliary System: The gallbladder is normal in size and shape. No wall thickening, pericholecystic fluid, or gallstones were identified. The common bile duct is normal in caliber without dilation. Pancreas: Pancreatic head, body, and tail are visualized and appear normal in size and density. No pancreatic masses or calcifications were noted. The pancreatic duct is not dilated. Spleen: Normal in size, shape, and density. No splenic lesions or masses were identified. Appendix: The appendix is normal in size without javid appendiceal fat stranding, and without an appendicolith. No evidence of appendiceal abscess or perforation. Kidneys and Adrenal Glands: Both kidneys are normal in size, shape, and position. Cortical thickness is within normal limits. No renal calculi or hydronephrosis. Bilateral renal cortical cysts are identified. One of the largest cyst in the right inferior renal pole measures 18 mm in size. One of the cyst in the left inferior renal pole measures 10 mm in size. Adrenal glands are unremarkable with no evidence of masses or hyperplasia. Pelvis: Urinary Bladder: Normal in contour and wall thickness. No intraluminal lesions identified. Prostate: Normal in size and contour. No focal lesions or masses identified. Seminal Vesicles: Normal in size and appearance. No abnormalities noted. Peritoneal and Retroperitoneal Structures: No free fluid or abnormal fluid collections were identified within the abdomen or pelvis. No lymphadenopathy was noted. 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 An additional stent is also identified within the right common iliac artery. Bowel: Dilated small bowel loops are identified with air-fluid levels. Maximum diameter of one of the small bowel loop measures 36 mm on the coronal section. The relative zone of transition is identified in the left lower abdomen, likely along the mid-iliac loops. The distal ileal loops are largely collapsed. Appearances represent features of small bowel obstruction. Oral contrast administration is recommended for further evaluation. Extensive colonic diverticulosis is identified without convincing features of acute diverticulitis. Moderate colonic fecal loading is identified. Stomach shows mildly thickened gastric rugal folds. This may be secondary to suboptimal distention/mild gastritis. Bones and Soft Tissues: Left-sided inguinal hernia is identified as containing omental fat. Mental density is identified in the right scrotal sac, resulting in metallic streak artifacts. Dynamic hip screw is partly visualized in the visualized right proximal femur. Degenerative changes are identified in the visualized spine. Gentle right sided thoracolumbar scoliosis is identified. Relatively reduced height of T10 vertebral body is noted. Reduced bilateral sacroiliac joint spaces are noted, predominantly on the right side. Lower chest: Atelectatic changes are identified in the visualized lung bases bilaterally. A small nodule is identified in the lateral segment of the left lower lung lobe measuring 6.6 mm in size. IMPRESSION: 1. Dilated small bowel loops with air-fluid levels and a relative zone of transition in the left lower abdomen likely along the proximal to mid-iliac loops. The distal ileal loops are largely collapsed. Appearances represent features of mild small bowel obstruction. No evidence of perforation. Clinical correlation and CT with oral contrast administration is recommended for further evaluation. 2. Extensive colonic diverticulosis without features of acute diverticulitis. 3. Moderate colonic fecal loading. 4. Numerous tiny hypodense cystic foci are scattered in the liver parenchyma. These may represent small hepatic cyst versus multiple biliary hamartomas. 5. Rest of the findings are as stated above. Electronically signed by Ben Myers 09-16-2024 01:46 AM
--- NOTE | 2024-09-16 02:28 | History & Physical Report ---
Date of Service September 16, 2024 Assessment & Plan (1) SBO (small bowel obstruction): (2) Hypertension: History of Present Illness Chief Complaint: abdominal pain Primary Care Provider: Yony Ambriz DO Martin Boateng is a 74-year-old male with history of hypertension, BPH presenting with abdominal pain. Patient has been in his usual state of health. He ate dinner this evening. Shortly after around 1900 he developed bandlike abdominal pain across his lower abdomen. No nausea or vomiting. No diarrhea. Pain persisted upon arrival to the ER. Relieved with morphine. No additional complaints at this time. No history of prior. In the ER he is afebrile, hemodynamically stable Allergies Allergy/AdvReac Type Severity Reaction Status Date / Time doxepin AdvReac severe Verified 09/14/24 08:53 lethargy Home Medications Medication Instructions Recorded Confirmed Type amlodipine 5 mg tablet 5 mg PO QAM #90 tabs 09/11/23 09/16/24 Rx azqaxlnjbz-tunzrpogundyi-adyygpsp 1 tab PO Q6H PRN headache #20 tabs 05/20/24 09/16/24 Rx 50 mg-325 mg-40 mg tablet aspirin 81 mg tablet,delayed 81 mg PO QAM 09/16/24 09/16/24 History release Past Med/Surg History Problem List (Updated 09/16/24 @ 03:00 by Noemy Finn DO) SBO (small bowel obstruction) Osteoarthritis Hypertension Benign prostatic hyperplasia with urinary obstruction (Acute) Peripheral neuropathy (Chronic) Had EMG in past. Requested records. Iliac artery aneurysm (08/12/13) hx s/p endovascular repair (2013), follows with Dr Alfonso Medical History FH: Alzheimers disease Facet arthritis, degenerative, L5-S1 level, lumbosacral spine Refusal of statin medication by patient 11/2022 - 10 year ASCVD score 21%. Patient respectfully declines. Will continue with lifestyle changes and routine follow up. Hematuria, gross Tension type headache Hypertension BPH (benign prostatic hyperplasia) Surgical History S/P total knee arthroplasty right and left Hx of vasectomy Hx of transurethral resection of prostate 03/09/18: LMA#4 at [facility] History of cystoscopy History of colonoscopy History of tooth extraction wisdom teeth History of cataract surgery R/L Hx of vascular surgery right iliac aneurysm repair ~2013 Hx of hand surgery right/left tendon repairs History of total knee replacement left History of arthroscopy R/L knee History of open reduction and internal fixation (ORIF) procedure right hip Family History Grandfather (Maternal) Myocardial infarction Mother Dementia Hypertension Brother Parkinsons disease Other No significant family history Denies family history of Ovarian cancer Prostate cancer Diabetes Heart disease Breast cancer Lung cancer Colorectal cancer Stroke Social History Smoking Status: Never smoker Tobacco Type: Cigarettes Age Started Using Tobacco: 10; Age Quit Using Tobacco: 48; packs per day: 0.25; Second Hand Exposure: No; Do You Dip or Chew Tobacco: No; Hx Alcohol Use: Yes Alcohol type: beer Alcohol Intake Frequency: 2-3 x/Week Hx Substance Use: No Preferred Language: Telugu Communication Ability: Effective Visual Impairment: Diminished Hearing Ability: Normal Fur Examiner Required: No marital status: Current Living Situation: Spouse current occupational status: retired current occupation: Retired from [employer] How many Children do You have: 0 Feels Safe at Home: Yes Childhood Exposure to Second-Hand Smoke: No Diet: regular caffeine: No Dental Care, Regularly: Yes Physical Activity Frequency: Daily Physical Activity Frequency Comment: Walks daily Seatbelt Use: always Sunscreen Use: Yes Assistive Devices: None Review of Systems Review of Systems: All systems reviewed & are unremarkable except as noted in HPI & below Physical Exam Physical Exam: General: patient resting comfortably, NAD, non-toxic in appearance, AA&O x 4 Skin: warm, dry, intact, no rashes or lesions HEENT: NC/AT, PERRL, EOMI, anicteric sclera, conjunctiva without injection, external ear normal to inspection and nontender, nares patent, moist mucus membranes, dentition intact, no oropharyngeal lesions, neck supple, trachea midline, no LAD, no thyromegaly, no JVD Heart: +S1/S2, regular, no m/r/g Lungs: equal air entry bilaterally, no rales/rhonchi/wheezes Abd: +BS, soft, NT/ND, no masses/organomegaly/ascites Ext: warm, 2+ pulses in UE/LE bilaterally, no clubbing/cyanosis or edema Neuro: nonfocal, patient AA&O x 4, speech intact, no facial droop, moving all extremities on command with equal strength 5/5 Results & Data Results & Data Vital Signs (Past 12 Hours) Vital Signs Temp Pulse Resp BP Pulse Ox O2 Del Method 09/16/24 01:09 61 15 124/79 96 09/16/24 00:18 59 L 16 131/82 97 Room Air 09/15/24 23:31 64 09/15/24 23:19 36.6 C 70 16 130/82 98 Room Air Laboratory Results Laboratory Results WBC 7.80 K/ul (4.8-10.8) 09/15/24 23:38 RBC 5.04 M/uL (4.70-6.10) 09/15/24 23:38 Hgb 15.1 g/dl (14.0-18.0) 09/15/24 23:38 Hct 44.7 % (42.0-52.0) 09/15/24 23:38 MCV 88.7 fL (80.0-100.0) 09/15/24 23:38 MCH 30.0 pg (25.0-34.0) 09/15/24 23:38 MCHC 33.8 g/dL (32.0-36.0) 09/15/24 23:38 RDW Std Deviation 43.8 fL (36.4-46.3) 09/15/24 23:38 RDW Coeff of Nataliia 13.5 % (11.5-14.5) 09/15/24 23:38 Plt Count 229 K/uL (130-400) 09/15/24 23:38 MPV 10.5 fL (9.4-12.4) 09/15/24 23:38 Immature Gran % (Auto) 0.3 % 09/15/24 23:38 Neut % (Auto) 58.4 % 09/15/24 23:38 Lymph % (Auto) 27.9 % 09/15/24 23:38 [facility] % (Auto) 8.7 % 09/15/24 23:38 Eos % (Auto) 4.1 % 09/15/24 23:38 Baso % (Auto) 0.6 % 09/15/24 23:38 Neut # (Auto) 4.55 K/uL (1.40-6.50) 09/15/24 23:38 Lymph # (Auto) 2.18 K/uL (1.20-3.40) 09/15/24 23:38 [facility] # (Auto) 0.68 K/uL (0.11-0.59) H 09/15/24 23:38 Eos # (Auto) 0.32 K/uL (0.00-0.50) 09/15/24 23:38 Baso # (Auto) 0.05 K/uL (0.00-0.20) 09/15/24 23:38 Immature Gran # (Auto) 0.02 K/uL (0.01-0.20) 09/15/24 23:38 Sodium 138 mmol/L (136-145) 09/15/24 23:38 Potassium 3.8 mmol/L (3.5-5.1) 09/15/24 23:38 Chloride 101 mmol/L (98-107) 09/15/24 23:38 Carbon Dioxide 28 mmol/L (21-32) 09/15/24 23:38 Anion Gap 9 (3-11) 09/15/24 23:38 BUN 18 mg/dl (6-23) 09/15/24 23:38 Creatinine 0.86 mg/dl (0.6-1.4) 09/15/24 23:38 Est Cr Clr Drug Dosing 75.5 ml/min 09/15/24 23:38 eGFR 89.74 09/15/24 23:38 BUN/Creatinine Ratio 20.9 (10-20) H 09/15/24 23:38 Glucose 110 mg/dl (70-99(Fasting)) H 09/15/24 23:38 Lactate 1.3 mmol/L (0.4-2.0) 09/15/24 23:55 Calcium 10.1 mg/dl (8.6-10.3) 09/15/24 23:38 Total Bilirubin 0.8 mg/dl (0.2-1.0) 09/15/24 23:38 AST 28 U/L (13-39) 09/15/24 23:38 ALT 18 U/L (7-52) 09/15/24 23:38 Alkaline Phosphatase 56 U/L (34-104) 09/15/24 23:38 Troponin I High Sens 4.9 pg/ml (0-20) 09/15/24 23:38 Total Protein 8.0 gm/dl (6.0-8.3) 09/15/24 23:38 Albumin 4.5 gm/dl (3.4-5.0) 09/15/24:38 Globulin 3.5 gm/dl (2.5-4.0) 09/15/24 23: Albumin/Globulin Ratio 1.3 (0.9-2) 09/15/24 23: Lipase 40 U/L (11-82) 09/15/24 23:38 Urine Color Yellow 09/16/24 00:00 Urine Appearance Cloudy (Clear) A 09/16/24 00:00 Urine pH >= 9.0 (4.5-7.5) H 09/16/24 00:00 Ur Specific [place] 1.012 (1.000-1.030) 09/16/24 00:00 Urine Protein Negative (Negative) 09/16/24 00:00 Urine Glucose (UA) Negative (Negative) 09/16/24 00:00 Urine Ketones Trace (Negative) H 09/16/24 00:00 Urine Blood Negative (Negative) 09/16/24 00:00 Urine Nitrite Negative (Negative) 09/16/24 00:00 Urine Bilirubin Negative (Negative) 09/16/24 00:00 Urine Urobilinogen Negative (Negative) 09/16/24 00:00 Ur Leukocyte Esterase Negative (Negative) 09/16/24 00:00 Urine WBC (Auto) 0-5 /hpf (0-5) 09/16/24 00:00 Urine RBC (Auto) 0-2 /hpf (0-2) 09/16/24 00:00 U Hyaline Cast (Auto) 0-2 /lpf (0-2) 09/16/24 00:00 U Epithel Cells (Auto) 0-2 /hpf (0-2) 09/16/24 00:00 Urine Bacteria (Auto) None Seen (None Seen) 09/16/24 00:00 Urine Comment 09/16/24 00:00 Impressions Abdomen/Pelvis CT 09/15/24 23:39 EXAM: CT abd pelvis IV con only CLINICAL HISTORY: Mid lower abdominal pain, could be diverticulitis. TECHNIQUE: Contrast-enhanced CT of the abdomen and pelvis was performed, with the following protocol: axial images with and reconstructed coronal and sagittal images. Intravenous contrast was administered. One of the following dose reduction techniques was utilized for this exam: Automated exposure control, adjustment of the mA and/or kV according to patient size, and use of iterative reconstruction. 93 ml Optiray 320 was given a an IV contrast. COMPARISON: None. FINDINGS: Abdomen: Liver: Normal in size, shape, and density. Numerous tiny subcentimeter-sized cystic lesions are identified scattered in bilateral hepatic lobes, which may represent simple cysts versus multiple biliary hamartomas. No focal solid lesions or masses were identified. Hepatic vasculature and biliary ducts are unremarkable. Gallbladder and Biliary System: The gallbladder is normal in size and shape. No wall thickening, pericholecystic fluid, or gallstones were identified. The common bile duct is normal in caliber without dilation. Pancreas: Pancreatic head, body, and tail are visualized and appear normal in size and density. No pancreatic masses or calcifications were noted. The pancreatic duct is not dilated. Spleen: Normal in size, shape, and density. No splenic lesions or masses were identified. Appendix: The appendix is normal in size without javid appendiceal fat stranding, and without an appendicolith. No evidence of appendiceal abscess or perforation. Kidneys and Adrenal Glands: Both kidneys are normal in size, shape, and position. Cortical thickness is within normal limits. No renal calculi or hydronephrosis. Bilateral renal cortical cysts are identified. One of the largest cyst in the right inferior renal pole measures 18 mm in size. One of the cyst in the left inferior renal pole measures 10 mm in size. Adrenal glands are unremarkable with no evidence of masses or hyperplasia. Pelvis: Urinary Bladder: Normal in contour and wall thickness. No intraluminal lesions identified. Prostate: Normal in size and contour. No focal lesions or masses identified. Seminal Vesicles: Normal in size and appearance. No abnormalities noted. Peritoneal and Retroperitoneal Structures: No free fluid or abnormal fluid collections were identified within the abdomen or pelvis. No lymphadenopathy was noted. 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 An additional stent is also identified within the right common iliac artery. Bowel: Dilated small bowel loops are identified with air-fluid levels. Maximum diameter of one of the small bowel loop measures 36 mm on the coronal section. The relative zone of transition is identified in the left lower abdomen, likely along the mid-iliac loops. The distal ileal loops are largely collapsed. Appearances represent features of small bowel obstruction. Oral contrast administration is recommended for further evaluation. Extensive colonic diverticulosis is identified without convincing features of acute diverticulitis. Moderate colonic fecal loading is identified. Stomach shows mildly thickened gastric rugal folds. This may be secondary to suboptimal distention/mild gastritis. Bones and Soft Tissues: Left-sided inguinal hernia is identified as containing omental fat. Mental density is identified in the right scrotal sac, resulting in metallic streak artifacts. Dynamic hip screw is partly visualized in the visualized right proximal femur. Degenerative changes are identified in the visualized spine. Gentle right sided thoracolumbar scoliosis is identified. Relatively reduced height of T10 vertebral body is noted. Reduced bilateral sacroiliac joint spaces are noted, predominantly on the right side. Lower chest: Atelectatic changes are identified in the visualized lung bases bilaterally. A small nodule is identified in the lateral segment of the left lower lung lobe measuring 6.6 mm in size. IMPRESSION: 1. Dilated small bowel loops with air-fluid levels and a relative zone of transition in the left lower abdomen likely along the proximal to mid-iliac loops. The distal ileal loops are largely collapsed. Appearances represent features of mild small bowel obstruction. No evidence of perforation. Clinical correlation and CT with oral contrast administration is recommended for further evaluation. 2. Extensive colonic diverticulosis without features of acute diverticulitis. 3. Moderate colonic fecal loading. 4. Numerous tiny hypodense cystic foci are scattered in the liver parenchyma. These may represent small hepatic cyst versus multiple biliary hamartomas. 5. Rest of the findings are as stated above. Electronically signed by Ben Myers 09-16-2024 01:46 AM Chest X-Ray 09/15/24 23:39 EXAM: XR chest 1V portable CLINICAL HISTORY: Abdominal pain. TECHNIQUE: An X-ray image of the chest is obtained in AP projection. COMPARISON: 03/06/2023. FINDINGS: Pulmonary Parenchyma: Emphysematous lungs. No evidence of consolidation, collapse, or focal opacities. No pulmonary nodules are identified. No evidence of pleural effusion or pleural thickening. Heart and Mediastinum: Cardiomegaly. Ectatic descending aorta. No mediastinal widening or masses. No hilar or mediastinal lymphadenopathy. Bony Thorax: Bony thorax appears intact without fractures or deformities. Soft Tissues: Soft tissues overlying the chest wall are unremarkable. IMPRESSION: 1. Emphysematous lungs. 2. Cardiomegaly. 3. No consolidation, pneumothorax or pleural effusion. 4. No interval changes. Electronically signed by Ben Myers 09-16-2024 01:16 AM Supervising Physician Co-Signing Physician Notes 74-year-old male with history of hypertension, BPH presenting with acute onset lower abdominal pain that occurred after dinner this evening. Imaging as above suggestive of small bowel obstruction. Patient denies history of abdominal surgeries. Reports that he is up-to-date on his screening colonoscopies. No history of prior obstructions. #SBObowel sounds are present, no nausea, pain is well-controlled Admit to medical Keep n.p.o. LR at 80 mL/h x 2 L ordered Tylenol and morphine as needed for pain Zofran as needed for nausea Will consult surgery if patient's symptoms worsen Check KUB in the morning #Hypertensionblood pressure adequately controlled Continue amlodipine 5 mg p.o. daily Continue to monitor F/E/N -LR at 80 mL/h x 2 L, electrolytes within normal limits, n.p.o. for nowadvance diet as tolerated pending results of a.m. KUB PG Care Time/CCT Total # of Minutes Spent Total Time Spent with Patient: Total time spent is greater than 50% in coordination of care (as documented) at patient's floor/unit and/or counseling patient: Coding Level of Care Code 51328 INT INP/OBS CARE MIN Diagnoses SBO (small bowel obstruction) K56.609 Hypertension I10
--- NOTE | 2024-09-16 02:38 | Emergency Department Note ---
Impression & Plan SBO (small bowel obstruction) ED Provider Note CHIEF COMPLAINT: Abdominal pain HISTORY OF PRESENT ILLNESS: This 74-year-old male patient past medical history of hypertension, osteoarthritis, status post stenting of an iliac artery aneurysm, peripheral neuropathy, benign prostatic hypertrophy presents to the emergency department with complaints of mid abdominal pain that began about an hour and a half after eating dinner this evening. Patient states he was in his usual state of health. He tried to ignore the pain but he felt that it was escalating while trying to lie down to go to sleep. He denies any fevers, difficulty urinating and vomiting. He has not had any difficulty with bowel movements recently. REVIEW OF SYSTEMS: A review of systems was performed with positives and pertinent negatives listed in the history of present illness. 10 systems were reviewed and are otherwise negative. ALLERGIES: see below MEDICATIONS: see below PMH: see below SOCIAL HISTORY: see below DDx: AAA, bowel obstruction, diverticulitis, cholecystitis, kidney stone, UTI among others PHYSICAL EXAM: Vital signs reviewed. General: Well-appearing 74-year-old male, in no significant distress. HEENT: No scleral icterus, PERRLA, neck supple. Atraumatic. Cardiovascular: Regular rate and rhythm, no extra sounds. Pulmonary: Clear to auscultation bilaterally, normal work of breathing. Abdomen: Soft, mildly tender to palpation in the mid abdominal region, nondistended, no significant tympany to percussion, positive bowel sounds. Musculoskeletal: Atraumatic, no peripheral edema. Neurologic: Patient awake alert and oriented x 3, speech is clear Skin: Warm, dry, no rash EMERGENCY DEPARTMENT COURSE/MDM: This patient was evaluated and appeared to be in no significant distress. IV access was obtained and laboratory work was drawn. The patient was placed on the teletypesetter monitor and noted to be in a normal sinus rhythm. CT of the abdomen pelvis was performed reveals a small bowel obstruction. The patient does not have any vomiting or significant distention however SBO does fit his picture. Laboratory work is reassuring. The patient was hydrated with normal saline solution, given IV morphine and Zofran for his discomfort. Case was discussed with the hospitalist service who will evaluate the patient for admission and further management. Patient and are aware of the plan and agreed. MONITORING: An order for cardiac monitoring was placed and the patient is noted to be in a normal sinus rhythm at 64 beats per minute. RADIOLOGY: chest x-ray to my interpretation reveals no evidence of focal lung consolidation or failure. IMPRESSION: 1. Dilated small bowel loops with air-fluid levels and a relative zone of transition in the left lower abdomen likely along the proximal to mid-iliac loops. The distal ileal loops are largely collapsed. Appearances represent features of mild small bowel obstruction. No evidence of perforation. Clinical correlation and CT with oral contrast administration is recommended for further evaluation. 2. Extensive colonic diverticulosis without features of acute diverticulitis. 3. Moderate colonic fecal loading. 4. Numerous tiny hypodense cystic foci are scattered in the liver parenchyma. These may represent small hepatic cyst versus multiple biliary hamartomas. 5. Rest of the findings are as stated above. DISPOSITION:Admission Past Med/Surg History Problem List (Updated 09/16/24 @ 23:25 by Francisca Ayala MD) SBO (small bowel obstruction) (Acute) Osteoarthritis Hypertension Benign prostatic hyperplasia with urinary obstruction (Acute) Peripheral neuropathy (Chronic) Had EMG in past. Requested records. Iliac artery aneurysm (08/12/13) hx s/p endovascular repair (2013), follows with Dr Alfonso Medical History FH: Alzheimers disease Facet arthritis, degenerative, L5-S1 level, lumbosacral spine Refusal of statin medication by patient 11/2022 - 10 year ASCVD score 21%. Patient respectfully declines. Will continue with lifestyle changes and routine follow up. Hematuria, gross Tension type headache Hypertension BPH (benign prostatic hyperplasia) Surgical History S/P total knee arthroplasty right and left Hx of vasectomy Hx of transurethral resection of prostate 03/09/18: LMA#4 at [facility] History of cystoscopy History of colonoscopy History of tooth extraction wisdom teeth History of cataract surgery R/L Hx of vascular surgery right iliac aneurysm repair ~2013 Hx of hand surgery right/left tendon repairs History of total knee replacement left History of arthroscopy R/L knee History of open reduction and internal fixation (ORIF) procedure right hip Family History Grandfather (Maternal) Myocardial infarction Mother Dementia Hypertension Brother Parkinsons disease Other No significant family history Denies family history of Ovarian cancer Prostate cancer Diabetes Heart disease Breast cancer Lung cancer Colorectal cancer Stroke Social History Smoking Status: Former smoker Tobacco Type: Cigarettes Age Started Using Tobacco: 10; Age Quit Using Tobacco: 48; packs per day: 0.25; Second Hand Exposure: No; Do You Dip or Chew Tobacco: No; Hx Alcohol Use: Yes Alcohol type: beer Alcohol Intake Frequency: 2-3 x/Week Hx Substance Use: No Preferred Language: Qatari Communication Ability: Effective Visual Impairment: Diminished Hearing Ability: Normal Router Machine Operator Required: No Beliefs That Will Affect Care: None marital status: Current Living Situation: Spouse Current Living Situation Comment: with current occupational status: retired current occupation: Retired from [employer] How many Children do You have: 0 Feels Safe at Home: Yes Childhood Exposure to Second-Hand Smoke: No Diet: regular caffeine: No Dental Care, Regularly: Yes Physical Activity Frequency: Daily Physical Activity Frequency Comment: Walks daily Seatbelt Use: always Sunscreen Use: Yes Assistive Devices: None Allergies Allergies Allergy/AdvReac Type Severity Reaction Status Date / Time doxepin AdvReac severe Verified 09/14/24 08:53 lethargy Home Meds Home Medications Medication Instructions Recorded Confirmed aspirin 81 mg tablet,delayed 81 mg PO QAM 09/16/24 09/16/24 release Previous Rx's Medication Instructions Recorded amlodipine 5 mg tablet 5 mg PO QAM #90 tabs 09/11/23 [id number] 1 tab PO Q6H PRN headache #20 tabs 05/20/24 50 mg-325 mg-40 mg tablet Results & Data (ED) Vital Signs Vital Signs - 24 hr 09/15/24 23:31 09/16/24 00:18 09/16/24 01:09 Pulse Rate 64 59 L 61 Respiratory Rate 16 15 Blood Pressure 131/82 124/79 Blood Pressure Mean 99 94 Pulse Oximetry 97 96 Oxygen Delivery Method Room Air Home Medications Current Medication List: was personally reviewed by me Laboratory Data Attestation: I reviewed the patient's lab results. 09/15/24 23:38 09/15/24 23:38 Lab Results 09/15/24 09/15/24 09/16/24 Range/Units 23:38 23:55 00:00 WBC 7.80 (4.8-10.8) K/ul RBC 5.04 (4.70-6.10) M/uL Hgb 15.1 (14.0-18.0) g/dl Hct 44.7 (42.0-52.0) % MCV 88.7 (80.0-100.0) fL MCH 30.0 (25.0-34.0) pg MCHC 33.8 (32.0-36.0) g/dL RDW Std Deviation 43.8 (36.4-46.3) fL RDW Coeff of Nataliia 13.5 (11.5-14.5) % Plt Count 229 (130-400) K/uL MPV 10.5 (9.4-12.4) fL Immature Gran % (Auto) 0.3 % Neut % (Auto) 58.4 % Lymph % (Auto) 27.9 % Dickens % (Auto) 8.7 % Eos % (Auto) 4.1 % Baso % (Auto) 0.6 % Neut # (Auto) 4.55 (1.40-6.50) K/uL Lymph # (Auto) 2.18 (1.20-3.40) K/uL Dickens # (Auto) 0.68 H (0.11-0.59) K/uL Eos # (Auto) 0.32 (0.00-0.50) K/uL Baso # (Auto) 0.05 (0.00-0.20) K/uL Immature Gran # (Auto) 0.02 (0.01-0.20) K/uL Sodium 138 (136-145) mmol/L Potassium 3.8 (3.5-5.1) mmol/L Chloride 101 (98-107) mmol/L Carbon Dioxide 28 (21-32) mmol/L Anion Gap 9 (3-11) BUN 18 (6-23) mg/dl Creatinine 0.86 (0.6-1.4) mg/dl Est Cr Clr Drug Dosing 75.5 ml/min eGFR 89.74 BUN/Creatinine Ratio 20.9 H (10-20) Glucose 110 H (70-99(Fasting)) mg/dl Lactate 1.3 (0.4-2.0) mmol/L Calcium 10.1 (8.6-10.3) mg/dl Total Bilirubin 0.8 (0.2-1.0) mg/dl AST 28 (13-39) U/L ALT 18 (7-52) U/L Alkaline Phosphatase 56 (34-104) U/L Troponin I High Sens 4.9 (0-20) pg/ml Total Protein 8.0 (6.0-8.3) gm/dl Albumin 4.5 (3.4-5.0) gm/dl Globulin 3.5 (2.5-4.0) gm/dl Albumin/Globulin Ratio 1.3 (0.9-2) Lipase 40 (11-82) U/L Urine Color Yellow Urine Appearance Cloudy A (Clear) Urine pH >= 9.0 H (4.5-7.5) Ur Specific [place] 1.012 (1.000-1.030) Urine Protein Negative (Negative) Urine Glucose (UA) Negative (Negative) Urine Ketones Trace H (Negative) Urine Blood Negative (Negative) Urine Nitrite Negative (Negative) Urine Bilirubin Negative (Negative) Urine Urobilinogen Negative (Negative) Ur Leukocyte Esterase Negative (Negative) Urine WBC (Auto) 0-5 (0-5) /hpf Urine RBC (Auto) 0-2 (0-2) /hpf U Hyaline Cast (Auto) 0-2 (0-2) /lpf U Epithel Cells (Auto) 0-2 (0-2) /hpf Urine Bacteria (Auto) None Seen (None Seen) Urine Comment Administered Medications Discontinued Medications Amlodipine Besylate (Amlodipine Besylate 5 Mg Tab) 5 mg PO [facility] Stop: 10/16/24 08:59 Last Admin: 09/16/24 08:02 Dose: 5 mg Documented By: PERCY Aspirin (Aspirin 81 Mg Ectab) [facility] [place] Stop: 10/16/24 08:59 Last Admin: 09/16/24 08:02 Dose: 81 mg Documented By: PERCY Sodium Chloride (Nss) 1,000 mls @ 999 mls/hr IV .Q1H1M STA Stop: 09/16/24 00:38 Last Infusion: 09/16/24 02:08 Dose: Infused Documented By: Admin: 09/15/24 23:54 Dose: 999 mls/hr Documented By: EMERALD Lactated Ringer's (Lr) 1,000 mls @ 80 mls/hr IV .[id number] KT Stop: 09/17/24 04:09 Last Infusion: 09/16/24 13:28 Dose: Infused Documented By: Admin: 09/16/24 03:29 Dose: 80 mls/hr Documented By: MOR Ioversol (Optiray 320 100ml) 93 ml IV ONCE ONE Stop: 09/16/24 00:38 Last Admin: 09/16/24 00:37 Dose: 93 ml Documented By: JAYE Morphine Sulfate (Morphine Sulfate 4 Mg/Ml 1 Ml Carp\Vial) 4 mg IV NOW STA Stop: 09/15/24 23:39 Last Admin: 09/15/24 23:53 Dose: 4 mg Documented By: EMERALD Ondansetron HCl (Ondansetron Inj 2 Mg/Ml 2 Ml Vial) 4 mg IV NOW STA Stop: 09/15/24 23:39 Last Admin: 09/15/24 23:54 Dose: 4 mg Documented By: EMERALD Imaging Data Radiologist's Impression: Abdomen/Pelvis CT 09/15/24 23:39 EXAM: CT abd pelvis IV con only CLINICAL HISTORY: Mid lower abdominal pain, could be diverticulitis. TECHNIQUE: Contrast-enhanced CT of the abdomen and pelvis was performed, with the following protocol: axial images with and reconstructed coronal and sagittal images. Intravenous contrast was administered. One of the following dose reduction techniques was utilized for this exam: Automated exposure control, adjustment of the mA and/or kV according to patient size, and use of iterative reconstruction. 93 ml Optiray 320 was given a an IV contrast. COMPARISON: None. FINDINGS: Abdomen: Liver: Normal in size, shape, and density. Numerous tiny subcentimeter-sized cystic lesions are identified scattered in bilateral hepatic lobes, which may represent simple cysts versus multiple biliary hamartomas. No focal solid lesions or masses were identified. Hepatic vasculature and biliary ducts are unremarkable. Gallbladder and Biliary System: The gallbladder is normal in size and shape. No wall thickening, pericholecystic fluid, or gallstones were identified. The common bile duct is normal in caliber without dilation. Pancreas: Pancreatic head, body, and tail are visualized and appear normal in size and density. No pancreatic masses or calcifications were noted. The pancreatic duct is not dilated. Spleen: Normal in size, shape, and density. No splenic lesions or masses were identified. Appendix: The appendix is normal in size without javid appendiceal fat stranding, and without an appendicolith. No evidence of appendiceal abscess or perforation. Kidneys and Adrenal Glands: Both kidneys are normal in size, shape, and position. Cortical thickness is within normal limits. No renal calculi or hydronephrosis. Bilateral renal cortical cysts are identified. One of the largest cyst in the right inferior renal pole measures 18 mm in size. One of the cyst in the left inferior renal pole measures 10 mm in size. Adrenal glands are unremarkable with no evidence of masses or hyperplasia. Pelvis: Urinary Bladder: Normal in contour and wall thickness. No intraluminal lesions identified. Prostate: Normal in size and contour. No focal lesions or masses identified. Seminal Vesicles: Normal in size and appearance. No abnormalities noted. Peritoneal and Retroperitoneal Structures: No free fluid or abnormal fluid collections were identified within the abdomen or pelvis. No lymphadenopathy was noted. 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 An additional stent is also identified within the right common iliac artery. Bowel: Dilated small bowel loops are identified with air-fluid levels. Maximum diameter of one of the small bowel loop measures 36 mm on the coronal section. The relative zone of transition is identified in the left lower abdomen, likely along the mid-iliac loops. The distal ileal loops are largely collapsed. Appearances represent features of small bowel obstruction. Oral contrast administration is recommended for further evaluation. Extensive colonic diverticulosis is identified without convincing features of acute diverticulitis. Moderate colonic fecal loading is identified. Stomach shows mildly thickened gastric rugal folds. This may be secondary to suboptimal distention/mild gastritis. Bones and Soft Tissues: Left-sided inguinal hernia is identified as containing omental fat. Mental density is identified in the right scrotal sac, resulting in metallic streak artifacts. Dynamic hip screw is partly visualized in the visualized right proximal femur. Degenerative changes are identified in the visualized spine. Gentle right sided thoracolumbar scoliosis is identified. Relatively reduced height of T10 vertebral body is noted. Reduced bilateral sacroiliac joint spaces are noted, predominantly on the right side. Lower chest: Atelectatic changes are identified in the visualized lung bases bilaterally. A small nodule is identified in the lateral segment of the left lower lung lobe measuring 6.6 mm in size. IMPRESSION: 1. Dilated small bowel loops with air-fluid levels and a relative zone of transition in the left lower abdomen likely along the proximal to mid-iliac loops. The distal ileal loops are largely collapsed. Appearances represent features of mild small bowel obstruction. No evidence of perforation. Clinical correlation and CT with oral contrast administration is recommended for further evaluation. 2. Extensive colonic diverticulosis without features of acute diverticulitis. 3. Moderate colonic fecal loading. 4. Numerous tiny hypodense cystic foci are scattered in the liver parenchyma. These may represent small hepatic cyst versus multiple biliary hamartomas. 5. Rest of the findings are as stated above. Electronically signed by Ben Myers 09-16-2024 01:46 AM Chest X-Ray 09/15/24 23:39 EXAM: XR chest 1V portable CLINICAL HISTORY: Abdominal pain. TECHNIQUE: An X-ray image of the chest is obtained in AP projection. COMPARISON: 03/06/2023. FINDINGS: Pulmonary Parenchyma: Emphysematous lungs. No evidence of consolidation, collapse, or focal opacities. No pulmonary nodules are identified. No evidence of pleural effusion or pleural thickening. Heart and Mediastinum: Cardiomegaly. Ectatic descending aorta. No mediastinal widening or masses. No hilar or mediastinal lymphadenopathy. Bony Thorax: Bony thorax appears intact without fractures or deformities. Soft Tissues: Soft tissues overlying the chest wall are unremarkable. IMPRESSION: 1. Emphysematous lungs. 2. Cardiomegaly. 3. No consolidation, pneumothorax or pleural effusion. 4. No interval changes. Electronically signed by Ben Myers 09-16-2024 01:16 AM Discharge Plan Visit Data Chief Complaint: Abdominal Pain Stated Complaint: ABDOMINAL PAIN ED Provider: Francisca Ayala Discharge Problem: SBO (small bowel obstruction) Patient Disposition: Admitted As Inpatient Condition: Fair Discharge Instructions Interventions: ED Discharge Assessment Last Done: 09/16/24 03:00
[2024-09-16 07:18] VITALS: BP 123/79; RESP 16; TEMP 98.4; O2SAT 97
--- NOTE | 2024-09-16 09:09 | XRay Report ---
KUB HISTORY: ?SBO COMPARISON STUDY: 05/26/2024 FINDINGS: Stable aortobiiliac vascular graft. There is residual contrast in the urinary bladder. Ther e is moderate retained stool. No specific evidence of bowel obstruction seen. No gross free air. IMPRESSION: No specific evidence of bowel obstruction seen. ACT 112: Negative or not required by law. The above report was generated using voice recognition software. It may contain grammatical, syntax o r spelling errors. Electronically signed by: Andrea Raphael M.D. 09/16/2024 9:07 AM
[2024-09-16 12:28] VITALS: PULSE 63
--- NOTE | 2024-09-16 12:29 | Discharge Summary ---
Discharge Summary Date of Service September 16, 2024 Principal Dx & Hospital Course #1 = Principal Diagnosis (1) SBO (small bowel obstruction): (2) Hypertension: Plan #SBO 74-year-old male with history of hypertension, BPH presenting with acute onset lower abdominal pain that occurred after dinner this evening. Imaging as above suggestive of small bowel obstruction. Patient denies history of abdominal erika geries. Reports that he is up-to-date on his screening colonoscopies. No history of prior obstructions. Morning KUB without obstruction, has passed gas, had a normal BM and tolerating low fiber diet without issue. Safe for discharge to home today, keep GI follow up next week, will send d/c summary to Dr. Bal. Discussed low fiber diet for the next few days. #Hypertensioncontinue amlodopine Admission HPI Per Admitting Provider Martin Boateng is a 74-year-old male with history of hypertension, BPH presenting with abdominal pain. Patient has been in his usual state of health. He ate dinner this evening. Shortly after around 1900 he developed bandlike abdominal pain across his lower abdomen. No nausea or vomiting. No diarrhea. Pain persisted upon arrival to the ER. Relieved with morphine. No additional complaints at this time. No history of prior. In the ER he is afebrile, hemodynamically stable Discharge Exam General: NAD, VS as above Resp: normal respiratory effort, lungs clear to auscultation CV: RRR, no murmur, Abd: normal bowel sounds, non tender, soft, no organomegaly Extremities: Moves all extremities, Neuro: A&O x3, Skin: intact, no lesions noted Discharge Plan Discharge Items Patient Disposition: Home - Self-Care Reason For Visit: ABDOMINAL PAIN,SBO Discharge Diagnosis: small bowel obstruction Activity: Resume your previous activity Weightbearing: Full weightbearing Non-emergency contact: Primary Care Provider Call non-emergency contact if: you have any medication questions, your symptoms worsen, your pain is not controlled, your pain is worsening and your temperature is above 101 Follow-up/Referrals: Yony Ambriz DO [Primary Care Provider] - ( follow-up within 1 week) Diet: Low Fiber Addtl Attending Provider Instructions: Mr. Boateng, you were hospitalized after having severe abdominal pain, found to have a small bowel obstruction. Thankfully this has resolved on its own and you do not require surgery. Recommend that you continue a low fiber diet for the next few days until your bowels returned back to normal, Monitoring for any constipation. I recommend you do not take your fiber supplement for the next 2 to 3 days. I have sent a copy of your records to Dr. Bal's office so you can discuss in follow-up. Continue with regular colon cancer/colonoscopy screening. If your symptoms return please return to the ER Recommend you follow-up with your PCP within 7 to 10 days Pending Studies at Discharge: No Stand-Alone Forms: [email or web address] ([email or web address]), Smoking Cessation Medications and DC Order Prescriptions: Continued amlodipine 5 mg tablet 5 mg PO QAM Qty: 90 3RF vdyjwglqxh-mszeadwjghfah-jzob 50-325-40 mg tablet 1 tab PO Q6H PRN (Reason: headache) Qty: 20 0RF aspirin [Aspirin Low-Strength] 81 mg Tablet,Delayed Release (Dr/Ec) 81 mg PO QAM Discharge Orders: Discharge Order (Routine); Ordered 09/16/24 Ordered By: Lizbeth Cevallos/Other Patient Handouts: Small Bowel Obstruction, Low-Fiber Diet Admission Data Admit Date/Time: 09/16/24 02:28 Attending Provider: Richard Vega Admit Provider: Noemy Finn Primary Care Provider: Yony Ambriz Other Providers: Noemy Finn Hospital Stay Data Consultations 09/16/24 02:18 ED Decision to Admit Stat Diagnostic Imagining Performed Abdomen/Pelvis CT 09/15/24 23:39 EXAM: CT abd pelvis IV con only CLINICAL HISTORY: Mid lower abdominal pain, could be diverticulitis. TECHNIQUE: Contrast-enhanced CT of the abdomen and pelvis was performed, with the following protocol: axial images with and reconstructed coronal and sagittal images. Intravenous contrast was administered. One of the following dose reduction techniques was utilized for this exam: Automated exposure control, adjustment of the mA and/or kV according to patient size, and use of iterative reconstruction. 93 ml Optiray 320 was given a an IV contrast. COMPARISON: None. FINDINGS: Abdomen: Liver: Normal in size, shape, and density. Numerous tiny subcentimeter-sized cystic lesions are identified scattered in bilateral hepatic lobes, which may represent simple cysts versus multiple biliary hamartomas. No focal solid lesions or masses were identified. Hepatic vasculature and biliary ducts are unremarkable. Gallbladder and Biliary System: The gallbladder is normal in size and shape. No wall thickening, pericholecystic fluid, or gallstones were identified. The common bile duct is normal in caliber without dilation. Pancreas: Pancreatic head, body, and tail are visualized and appear normal in size and density. No pancreatic masses or calcifications were noted. The pancreatic duct is not dilated. Spleen: Normal in size, shape, and density. No splenic lesions or masses were identified. Appendix: The appendix is normal in size without javid appendiceal fat stranding, and without an appendicolith. No evidence of appendiceal abscess or perforation. Kidneys and Adrenal Glands: Both kidneys are normal in size, shape, and position. Cortical thickness is within normal limits. No renal calculi or hydronephrosis. Bilateral renal cortical cysts are identified. One of the largest cyst in the right inferior renal pole measures 18 mm in size. One of the cyst in the left inferior renal pole measures 10 mm in size. Adrenal glands are unremarkable with no evidence of masses or hyperplasia. Pelvis: Urinary Bladder: Normal in contour and wall thickness. No intraluminal lesions identified. Prostate: Normal in size and contour. No focal lesions or masses identified. Seminal Vesicles: Normal in size and appearance. No abnormalities noted. Peritoneal and Retroperitoneal Structures: No free fluid or abnormal fluid collections were identified within the abdomen or pelvis. No lymphadenopathy was noted. 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 An additional stent is also identified within the right common iliac artery. Bowel: Dilated small bowel loops are identified with air-fluid levels. Maximum diameter of one of the small bowel loop measures 36 mm on the coronal section. The relative zone of transition is identified in the left lower abdomen, likely along the mid-iliac loops. The distal ileal loops are largely collapsed. Appearances represent features of small bowel obstruction. Oral contrast administration is recommended for further evaluation. Extensive colonic diverticulosis is identified without convincing features of acute diverticulitis. Moderate colonic fecal loading is identified. Stomach shows mildly thickened gastric rugal folds. This may be secondary to suboptimal distention/mild gastritis. Bones and Soft Tissues: Left-sided inguinal hernia is identified as containing omental fat. Mental density is identified in the right scrotal sac, resulting in metallic streak artifacts. Dynamic hip screw is partly visualized in the visualized right proximal femur. Degenerative changes are identified in the visualized spine. Gentle right sided thoracolumbar scoliosis is identified. Relatively reduced height of T10 vertebral body is noted. Reduced bilateral sacroiliac joint spaces are noted, predominantly on the right side. Lower chest: Atelectatic changes are identified in the visualized lung bases bilaterally. A small nodule is identified in the lateral segment of the left lower lung lobe measuring 6.6 mm in size. IMPRESSION: 1. Dilated small bowel loops with air-fluid levels and a relative zone of transition in the left lower abdomen likely along the proximal to mid-iliac loops. The distal ileal loops are largely collapsed. Appearances represent features of mild small bowel obstruction. No evidence of perforation. Clinical correlation and CT with oral contrast administration is recommended for further evaluation. 2. Extensive colonic diverticulosis without features of acute diverticulitis. 3. Moderate colonic fecal loading. 4. Numerous tiny hypodense cystic foci are scattered in the liver parenchyma. These may represent small hepatic cyst versus multiple biliary hamartomas. 5. Rest of the findings are as stated above. Electronically signed by Ben Myers 09-16-2024 01:46 AM Chest X-Ray 09/15/24 23:39 EXAM: XR chest 1V portable CLINICAL HISTORY: Abdominal pain. TECHNIQUE: An X-ray image of the chest is obtained in AP projection. COMPARISON: 03/06/2023. FINDINGS: Pulmonary Parenchyma: Emphysematous lungs. No evidence of consolidation, collapse, or focal opacities. No pulmonary nodules are identified. No evidence of pleural effusion or pleural thickening. Heart and Mediastinum: Cardiomegaly. Ectatic descending aorta. No mediastinal widening or masses. No hilar or mediastinal lymphadenopathy. Bony Thorax: Bony thorax appears intact without fractures or deformities. Soft Tissues: Soft tissues overlying the chest wall are unremarkable. IMPRESSION: 1. Emphysematous lungs. 2. Cardiomegaly. 3. No consolidation, pneumothorax or pleural effusion. 4. No interval changes. Electronically signed by Ben Myers 09-16-2024 01:16 AM KUB X-Ray 09/16/24 08:00 KUB HISTORY: ?SBO COMPARISON STUDY: 05/26/2024 FINDINGS: Stable aortobiiliac vascular graft. There is residual contrast in the urinary bladder. There is moderate retained stool. No specific evidence of bowel obstruction seen. No gross free air. IMPRESSION: No specific evidence of bowel obstruction seen. ACT 112: Negative or not required by law. The above report was generated using voice recognition software. It may contain grammatical, syntax or spelling errors. Electronically signed by: Andrea Raphael M.D. 09/16/2024 9:07 AM Pending Results Patient Have Any Pending Studies at Discharge: No Discharge Instructions Given to Patient (Per Discharging Provider) Mr. Boateng, you were hospitalized after having severe abdominal pain, found to have a small bowel obstruction. Thankfully this has resolved on its own and you do not require surgery. Recommend that you continue a low fiber diet for the next few days until your bowels returned back to normal, Monitoring for any constipation. I recommend you do not take your fiber supplement for the next 2 to 3 days. I have sent a copy of your records to Dr. Bal's office so you can discuss in follow-up. Continue with regular colon cancer/colonoscopy screening. If your symptoms return please return to the ER Recommend you follow-up with your PCP within 7 to 10 days Total Time Total Time Spent Total Time Spent (In Minutes): Time spent day of discharge 33 minutes including direct patient care, medication reconciliation, documentation, review of labs and images, and coordination of care. Coding Level of Care Code None Diagnoses SBO (small bowel obstruction) K56.609 Hypertension I10
== END 2024-09-16 14:28 | disposition home or self-care (01) ==
LOC: ED 23:15 → 3W 23:15 → SUATTDRO 09-16 02:28 → 3W 09-16 03:00